=== PATIENT | female | born 1975 | race African-American/Black ===

== ENCOUNTER 2016-03-19 11:58 | Inpatient (IN) | payer MEDICAID ==
[~2016-03-19] VITALS: Ht 170.2 cm; Wt 52.6 kg
[2016-03-19] MEDS ORDERED: HYDR25TA PO (12:09)
[2016-03-19 14:13] LABS: BASOPHILS % (AUTO) 0.4 % (0.0-2.0); EOSINOPHILS % (AUTO) 0.1 % (1.0-6.0); HEMATOCRIT 43.7 % (36-46); HEMOGLOBIN 14.7 g/dL (12.0-16.0); LYMPHOCYTES # (AUTO) 0.7 K/uL (1.0-4.8); LYMPHOCYTES % (AUTO) 9.7 % (22.0-44.0); MEAN CORPUSCULAR HEMOGLOBIN 35.4 pg (26.0-34.0); MEAN CORPUSCULAR HGB CONC 33.8 G/dL (31.0-37.0); MEAN CORPUSCULAR VOLUME 105 fL (80-100); MONOCYTES # (AUTO) 0.4 K/uL (0.1-1.0); NEUTROPHILS % (AUTO) 84.8 % (40.0-70.0); PLATELET COUNT (AUTO) 167 K/uL (150-450); RED BLOOD CELL COUNT(AUTO) 4.17 MIL/uL (4.00-5.20); RED CELL DISTRIBUTION WIDTH 14.7 % (11.5-14.5); WHITE BLOOD COUNT (AUTO) 7.1 K/uL (4.5-11.0)
[2016-03-19 14:27] LABS: ALANINE AMINOTRANSFERASE 113 U/L (12-78); ALBUMIN 4.1 g/dL (3.4-5.0); ANION GAP 20 mmol/L (8-16); ASPARTATE AMINOTRANSFERASE 122 U/L (15-37); CALCIUM, TOTAL 8.8 mg/dL (8.8-10.5); CARBON DIOXIDE 26 mmol/L (22-29); CHLORIDE 95 mmol/L (98-107); CREATININE 0.89 mg/dL (0.60-1.30); GLOMERULAR FILTR. RATE CALC > 60 mL/min (>60); SODIUM SERUM 141 mmol/L (136-145); UREA NITROGEN, BLOOD 10 mg/dL (7-18)
[2016-03-19 14:31] LABS: POTASSIUM 2.1 mmol/L (3.5-5.1)
[2016-03-19 14:35] LABS: RBC MORPHOLOGY COMMENT ABNORMAL RBC MORPH
[2016-03-19] MEDS ORDERED: POTASSIUM CHLORIDE 10% 40 MEQ/30 ML LIQUID UDCUP PO ONE (15:00)
[2016-03-19] MEDS ORDERED: POTASSIUM CHL 10 MEQ/WATER 50 ML IV PRN (15:00)
[2016-03-19] MEDS ORDERED: SODIUM CHLORIDE 0.9% 1,000 ML IV ONE (15:00)
[2016-03-19] MEDS ORDERED: POTASSIUM CHLORIDE 20 MEQ ER TABLET PO PRN ×2 (15:00→16:30)
[2016-03-19] MEDS ORDERED: PROMETHAZINE HCL 25 MG/ML VIAL IM ONE (15:45)
[2016-03-19] MEDS ORDERED: 0.9% SODIUM CHLORIDE 10 ML SYRINGE IVP PRN (16:00)
[2016-03-19] MEDS ORDERED: PANTOPRAZOLE SODIUM 40 MG/VIAL IVP SCH (16:00)
[2016-03-19] MEDS ORDERED: ACETAMINOPHEN 325 MG TABLET PO PRN ×2 (16:00→16:30)
[2016-03-19] MEDS ORDERED: ONDANSETRON HCL 4 MG/2 ML VIAL IVP PRN ×2 (16:00→16:30)
[2016-03-19 16:12] LABS: APPEARANCE,URINE CLOUDY (CLEAR); GLUCOSE, URINE (UA) NEGATIVE (NEGATIVE); KETONES,URINE >=80 mg/dL (NEGATIVE); LEUKOCYTE ESTERASE ,URINE NEGATIVE (NEGATIVE); PROTEIN,URINE SEE CONFIRM (NEGATIVE)
[2016-03-19] MEDS ORDERED: DIAZEPAM 5 MG/ML 2 ML SYRINGE IVP ONE (16:15)
[2016-03-19 16:28] LABS: ADD UA MICROSCOPIC YES; OCCULT BLOOD,URINE SMALL (NEGATIVE)
[2016-03-19 16:29] LABS: COARSE GRANULAR CASTS,URINE 0-2 /LPF (None Seen); FINE GRANULAR CASTS,URINE 0-2 /LPF (None Seen); SQUAMOUS EPITHELIAL CELL,UR Many /LPF (None Seen); SULFOSALICYLIC ACID,URINE 4+ (Negative)
[2016-03-19] MEDS: AmLODIPine BESYLATE 10 MG TABLET PO SCH (16:30)
[2016-03-19] MEDS ORDERED: POTASSIUM CHL 20 MEQ/0.45% NS 1,000 ML IV ONE (16:30)
[2016-03-19] MEDS ORDERED: MAGNESIUM HYDROXIDE SUSPENSION 30 ML UDCUP PO PRN (16:30)
[2016-03-19] MEDS ORDERED: MORPHINE SULFATE 2 MG/ML SYRINGE IVP PRN (16:30)
[2016-03-19] MEDS ORDERED: BISACODYL 10 MG RECTAL RECTAL SUPPOSITORY PR PRN (16:30)
[2016-03-19] MEDS ORDERED: MAGNESIUM SULFATE 2 GM in DEXTROSE 5%-WATER 50 ML IV PRN (16:30)
[2016-03-19] MEDS ORDERED: ZOLPIDEM TARTRATE 5 MG TABLET PO PRN (16:30)
[2016-03-19] MEDS ORDERED: MAGNESIUM SULFATE 4 GM/WATER 100 ML IV PRN (16:30)
[2016-03-19] MEDS ORDERED: MAGNESIUM OXIDE 400 MG TABLET PO PRN (16:30)
[2016-03-19 16:51] LABS: HEMOGLOBIN A1C 4.8 % (4.5-6.2)
[2016-03-19 19:50] LABS: ANION GAP 8 mmol/L (8-16); CALCIUM, TOTAL 7.5 mg/dL (8.8-10.5); CARBON DIOXIDE 30 mmol/L (22-29); CHLORIDE 98 mmol/L (98-107); GLOMERULAR FILTR. RATE CALC > 60 mL/min (>60); SODIUM SERUM 136 mmol/L (136-145); UREA NITROGEN, BLOOD 12 mg/dL (7-18)
[2016-03-19 19:53] LABS: POTASSIUM 2.7 mmol/L (3.5-5.1)
[2016-03-19] MEDS: POTASSIUM CHL 10 MEQ/WATER 50 ML IV PRN ×2 (20:32→22:32)
[2016-03-19] MEDS: DOCUSATE SODIUM 100 MG CAPSULE PO SCH (21:07)
[2016-03-20] VITALS (8 sets, daily range): BP systolic 130–172; BP diastolic 88–122
[2016-03-20] MEDS: HEPARIN SODIUM,PORCINE 5,000 UNITS/ML VIAL SQ SCH ×3 (00:10→15:54)
[2016-03-20] MEDS: HydrALAZINE HCL 10 MG TABLET PO PRN ×4 (00:21→20:37)
[2016-03-20] MEDS ORDERED: SODIUM CHLORIDE 0.9% 250 ML IV ONE (00:25)
[2016-03-20] MEDS ORDERED: INFLUENZA VIRUS VACCINE QVS 2016-17 (3YR+)/PF 60 MCG/0.5 ML SYRINGE IM ONE (01:15)
[2016-03-20] MEDS ORDERED: 0.9% SODIUM CHLORIDE 10 ML SYRINGE IVP PRN (01:15)
[2016-03-20] MEDS ORDERED: PNEUMOCOCCAL VACCINE POLYVALENT 0.5 ML VIAL [PPSV23] IM ONE (01:15)
[2016-03-20] MEDS: POTASSIUM CHL 10 MEQ/WATER 50 ML IV PRN (02:34)
[2016-03-20] MEDS: HYDROCODONE/ACETAMINOPHEN 5-325 MG TABLET PO PRN ×2 (07:31→15:54)
[2016-03-20] MEDS: AmLODIPine BESYLATE 10 MG TABLET PO SCH (07:31)
[2016-03-20 07:43] LABS: ANION GAP 11 mmol/L (8-16); CARBON DIOXIDE 25 mmol/L (22-29); CHLORIDE 101 mmol/L (98-107); GLOMERULAR FILTR. RATE CALC > 60 mL/min (>60); SODIUM SERUM 137 mmol/L (136-145); UREA NITROGEN, BLOOD 12 mg/dL (7-18)
[2016-03-20 07:46] LABS: POTASSIUM 2.9 mmol/L (3.5-5.1)
[2016-03-20 07:51] LABS: CALCIUM, TOTAL 7.3 mg/dL (8.8-10.5)
[2016-03-20] MEDS: PANTOPRAZOLE SODIUM 40 MG DR TABLET PO SCH (07:55)
[2016-03-20] MEDS: DOCUSATE SODIUM 100 MG CAPSULE PO SCH ×2 (09:00→19:51)
[2016-03-20] MEDS: LORazepam 2 MG/ML VIAL IVP PRN (20:05)
[2016-03-21 00:13] VITALS: BP 150/99
[2016-03-21] MEDS: HEPARIN SODIUM,PORCINE 5,000 UNITS/ML VIAL SQ SCH ×2 (00:14→08:16)
[2016-03-21 04:25] VITALS: BP 160/100
[2016-03-21] MEDS: HYDROCODONE/ACETAMINOPHEN 5-325 MG TABLET PO PRN (04:30)
[2016-03-21] MEDS: LORazepam 2 MG/ML VIAL IVP PRN (04:30)
[2016-03-21] MEDS: HydrALAZINE HCL 10 MG TABLET PO PRN ×2 (04:30→08:44)
[2016-03-21 05:28] VITALS: BP 156/110
[2016-03-21 07:26] LABS: ANION GAP 10 mmol/L (8-16); CALCIUM, TOTAL 7.9 mg/dL (8.8-10.5); CARBON DIOXIDE 28 mmol/L (22-29); CHLORIDE 99 mmol/L (98-107); CREATININE 0.61 mg/dL (0.60-1.30); GLOMERULAR FILTR. RATE CALC > 60 mL/min (>60); SODIUM SERUM 137 mmol/L (136-145); UREA NITROGEN, BLOOD 5 mg/dL (7-18)
[2016-03-21 07:40] LABS: POTASSIUM 2.5 mmol/L (3.5-5.1)
[2016-03-21 07:44] VITALS: BP 157/115
[2016-03-21] MEDS: AmLODIPine BESYLATE 10 MG TABLET PO SCH (08:01)
[2016-03-21] MEDS: POTASSIUM CHL 10 MEQ/WATER 50 ML IV PRN ×2 (08:15→09:29)
[2016-03-21] MEDS: DOCUSATE SODIUM 100 MG CAPSULE PO SCH (08:31)
[2016-03-21] MEDS: PANTOPRAZOLE SODIUM 40 MG DR TABLET PO SCH (08:31)
[2016-03-21] MEDS ORDERED: AMLO10TA55 PO (10:32)
[2016-03-21 11:23] VITALS: BP 142/101
[2016-03-21 12:00] VITALS: BP 140/90
[2016-03-21] MEDS ORDERED: KCL PO (12:08)
[2016-03-21] MEDS ORDERED: AMLO-512 PO (12:08)
== END 2016-03-21 13:00 | disposition home or self-care (01) | DRG 425 ==
LOC: EMS 12:00 → 5S 22:32
PROVIDERS: ADMIT Internal Medicine; ATTEND Internal Medicine
DX: E87.6 Hypokalemia (principal); E83.42 Hypomagnesemia; I10 Essential (primary) hypertension; F12.10 Cannabis abuse, uncomplicated; F10.10 Alcohol abuse, uncomplicated; F17.210 Nicotine dependence, cigarettes, uncomplicated; Z91.14 Patient's other noncompliance with medication regimen; Z79.899 Other long term (current) drug therapy
CPT/HCPCS: 83036; 83735; 84132; 93005; 96361; 96372; 96374; 96375; 99285; C9113; J1644; J2060; J2550; J3475; J3480; J7030; J7050; J7060